=== PATIENT | male | born 1970 | race African-American/Black ===

== ENCOUNTER 2021-03-11 15:35 | Inpatient (IN) | payer OTHER ==
[2021-03-11 17:22] VITALS: BMI 32.3
[2021-03-11] MEDS ORDERED: MAGNESIUM HYDROX 2400MG/30ML ORAL SUSPENSION 30 ML CUP PO PRN (18:14)
[2021-03-11] MEDS ORDERED: MENTHOL/PHENOL 1 EACH UD MM PRN (18:14)
[2021-03-11] MEDS ORDERED: MELATONIN 5 MG TABLETS PO PRN (18:14)
[2021-03-11] MEDS ORDERED: BISMUTH SUBSALICYLATE 524 MG/30 ML PO PRN (18:14)
[2021-03-11] MEDS ORDERED: MAG HYDROX/AL HYDROX/SIMETH 30 ML UNIT-DOSE CUP PO PRN (18:14)
[2021-03-11] MEDS ORDERED: METHOCARBAMOL 500 MG TABLET PO PRN (18:14)
[2021-03-11] MEDS ORDERED: ONDANSETRON *ODT* 4 MG TABLET SL PRN (18:14)
[2021-03-11] MEDS ORDERED: MAGNESIUM CITRATE 300 ML BOTTLE PO PRN (18:14)
[2021-03-11] MEDS ORDERED: hydrOXYzine PAMOATE 25 MG CAPSULE (FP) PO PRN (18:14)
[2021-03-11] MEDS ORDERED: IBUPROFEN 400 MG TABLET (FP) PO PRN (18:14)
[2021-03-11] MEDS ORDERED: ACETAMINOPHEN 325 MG TABLET (FP) PO PRN ×2 (18:14)
[2021-03-11] MEDS: THIAMINE HCL 100 MG TABLET (FP) PO SCH (22:17)
[2021-03-12] MEDS ORDERED: methaDONE HCL 10 MG TABLET PO SCH (08:00)
[2021-03-12] MEDS ORDERED: methaDONE 40 MG, methaDONE 20 MG PO ONE (08:15)
[2021-03-12] MEDS ORDERED: diazePAM 5 MG TABLET PO PRN (09:08)
[2021-03-12] MEDS ORDERED: methaDONE HCL 40 MG DISPERSABLE TABLET ONE (10:02)
[2021-03-12] MEDS ORDERED: methaDONE HCL 10 MG TABLET ONE (10:02)
[2021-03-12] MEDS: BENZTROPINE MESYLATE 1 MG TABLET PO SCH (10:18)
[2021-03-12] MEDS: HALOPERIDOL 5 MG TABLET PO SCH (10:18)
[2021-03-12] MEDS: PRENATAL VITAMINS W/ FOLIC ACID TABLET (FP) PO SCH (10:18)
[2021-03-12] MEDS: diazePAM 5 MG TABLET PO SCH ×3 (10:20→22:10)
[2021-03-12 10:29] LABS: HEMATOCRIT 41.1 % (35.4-49); HEMOGLOBIN 13.4 GM/dL (11.7-16.9); MCH 29.2 pg (25.7-33.7); MCHC 32.5 g/dl (32.0-35.9); MEAN CELL VOLUME 89.9 fl (80-96); MEAN PLT VOLUME 9.2 fl (7.5-11.1); PLATELET COUNT 281 10^3/uL (134-434); RBC 4.58 M/mm3 (4.00-5.60); RDW 19.2 % (11.9-15.9); WHITE BLOOD COUNT 5.7 K/mm3 (4.0-10.0)
[2021-03-12 10:38] LABS: ALBUMIN 3.6 g/dl (3.4-5.0); BLOOD UREA NITROGEN 18.4 mg/dL (7-18); CALCIUM 9.5 mg/dL (8.5-10.1)
[2021-03-12 10:41] LABS: CREATININE 0.9 mg/dL (0.55-1.3)
[2021-03-12 10:43] LABS: TOT PROT 7.1 g/dl (6.4-8.2)
[2021-03-12 10:56] LABS: BILIRUBIN,TOTAL 0.5 mg/dL (0.2-1)
[2021-03-12 11:30] LABS: HIV INTERPRETATION NEGATIVE (NEGATIVE)
[2021-03-12] MEDS: THIAMINE HCL 100 MG TABLET (FP) PO SCH (22:10)
[2021-03-12] MEDS: QUEtiapine FUMARATE 100 MG TABLET (FP) PO SCH (22:10)
[2021-03-13] MEDS ORDERED: methaDONE HCL 10 MG TABLET ONE (04:14)
[2021-03-13] MEDS ORDERED: methaDONE HCL 40 MG DISPERSABLE TABLET ONE (04:15)
[2021-03-13] MEDS: methaDONE 40 MG, methaDONE 20 MG PO SCH (05:25)
[2021-03-13] MEDS: diazePAM 5 MG TABLET PO SCH ×4 (05:25→22:07)
[2021-03-13] MEDS: PRENATAL VITAMINS W/ FOLIC ACID TABLET (FP) PO SCH (10:10)
[2021-03-13] MEDS: HALOPERIDOL 5 MG TABLET PO SCH (10:10)
[2021-03-13] MEDS: BENZTROPINE MESYLATE 1 MG TABLET PO SCH (10:10)
[2021-03-13] MEDS: QUEtiapine FUMARATE 100 MG TABLET (FP) PO SCH (22:08)
[2021-03-13] MEDS: THIAMINE HCL 100 MG TABLET (FP) PO SCH (22:08)
[2021-03-14] MEDS ORDERED: methaDONE HCL 10 MG TABLET ONE (04:07)
[2021-03-14] MEDS ORDERED: methaDONE HCL 40 MG DISPERSABLE TABLET ONE (04:08)
[2021-03-14] MEDS: diazePAM 5 MG TABLET PO SCH ×3 (05:00→22:04)
[2021-03-14] MEDS: methaDONE 40 MG, methaDONE 20 MG PO SCH (05:00)
[2021-03-14] MEDS: BENZTROPINE MESYLATE 1 MG TABLET PO SCH (10:31)
[2021-03-14] MEDS: HALOPERIDOL 5 MG TABLET PO SCH (10:32)
[2021-03-14] MEDS: PRENATAL VITAMINS W/ FOLIC ACID TABLET (FP) PO SCH (10:32)
[2021-03-14] MEDS: QUEtiapine FUMARATE 100 MG TABLET (FP) PO SCH (22:04)
[2021-03-14] MEDS: THIAMINE HCL 100 MG TABLET (FP) PO SCH (22:04)
[2021-03-15] MEDS ORDERED: methaDONE HCL 10 MG TABLET ONE (04:02)
[2021-03-15] MEDS ORDERED: methaDONE HCL 40 MG DISPERSABLE TABLET ONE (04:02)
[2021-03-15] MEDS: methaDONE 40 MG, methaDONE 20 MG PO SCH (05:10)
[2021-03-15] MEDS ORDERED: diazePAM 5 MG TABLET PO SCH (06:00)
[2021-03-15 09:02] VITALS: TEMP 96.8
[2021-03-15] MEDS: HALOPERIDOL 5 MG TABLET PO SCH (10:15)
[2021-03-15] MEDS: BENZTROPINE MESYLATE 1 MG TABLET PO SCH (10:15)
[2021-03-15] MEDS: PRENATAL VITAMINS W/ FOLIC ACID TABLET (FP) PO SCH (10:15)
[2021-03-15 13:07] VITALS: BP 106/58; PULSE 60
[2021-03-16] MEDS ORDERED: diazePAM 5 MG TABLET PO ONE (06:00)
== END 2021-03-15 14:45 | disposition home or self-care (01) | DRG 773 ==
LOC: YASAS 15:35 → Y3N 18:34
PROVIDERS: ADMIT Allergy & Immunology; ATTEND Allergy & Immunology
PROC: HZ2ZZZZ Detoxification Services for Substance Abuse Treatment (ICD-10-PCS; principal; 2021-03-11)
DX: F10.230 Alcohol dependence with withdrawal, uncomplicated (principal); F11.20 Opioid dependence, uncomplicated; F12.20 Cannabis dependence, uncomplicated; F17.210 Nicotine dependence, cigarettes, uncomplicated; F20.9 Schizophrenia, unspecified; Z91.51 Personal history of suicidal behavior; Z56.0 Unemployment, unspecified; Z59.00 Homelessness unspecified
CPT/HCPCS: 36415; 80053; 85027; 86780; 87389; C9803; U0003; U0005